=== PATIENT | female | born 1995 | race Caucasian/White ===

== ENCOUNTER 2017-11-28 17:41 | Emergency (ER) | payer OTHER ==
[2017-11-28 17:48] VITALS: BP 147/79; PULSE 109; RESP 20; TEMP 98.5
[2017-11-28] MEDS ORDERED: BUPIVACAINE (PF) 0.5% 30 ML VIAL SQ STA (18:17)
--- NOTE | 2017-11-28 18:21 | ED ---
ENT HPI - General Chief complaint: Dental/Oral Stated complaint: Tooth pain Time Seen by Provider: 11/28/17 18:14 Source: patient, RN notes reviewed, old records reviewed Mode of arrival: ambulatory Limitations: no limitations - History of Present Illness Initial comments: His is a 22-year-old female presents emergency room today chief complaint of left lower dental pain. Patient reports that she broke her tooth today while eating turkey. She reports that she schedule have the tooth removed on Friday. She states that she was started on amoxicillin by the dentist, and has enough of the antibiotics to continue until she has the procedure. She reports that he pain became acutely worse after it broke. Patient denies any fever or chills, chest pain, shortness of breath. Patient denies any drainage within her mouth. Denies any foul taste. She denies any trismus. - Related Data Previous Rx's Medication Instructions Recorded HYDROcodone/APAP 5-325MG [Mckinney 1 tab PO Q6HR PRN #12 tab 11/28/17 5-325] Ibuprofen 800 mg PO TID #20 tablet 11/28/17 Allergies Allergy/AdvReac Type Severity Reaction Status Date / Time No Known Allergies Allergy Verified 11/28/17 17:47 Review of Systems ROS Statement: Those systems with pertinent positive or pertinent negative responses have been documented in the HPI. ROS Other: All systems not noted in ROS Statement are negative. Past Medical History Past Medical History: No Reported History History of Any Multi-Drug Resistant Organisms: None Reported Past Surgical History: No Surgical Hx Reported Past Psychological History: No Psychological Hx Reported Smoking Status: Never smoker Past Alcohol Use History: None Reported Past Drug Use History: Marijuana General Exam - General Exam Comments Initial Comments: 22-year-old female. No acute distress. Limitations: no limitations General appearance: alert, in no apparent distress Head exam: Present: atraumatic, normocephalic, normal inspection Eye exam: Present: normal appearance, PERRL, EOMI. Absent: scleral icterus, conjunctival injection, periorbital swelling ENT exam: Present: normal exam, mucous membranes moist. Absent: normal oropharynx (Patient has fractured tooth #19. No evidence of dental abscess.) Neck exam: Present: normal inspection. Absent: tenderness, meningismus, lymphadenopathy Respiratory exam: Present: normal lung sounds bilaterally. Absent: respiratory distress, wheezes, rales, rhonchi, stridor Cardiovascular Exam: Present: regular rate, normal rhythm, normal heart sounds. Absent: systolic murmur, diastolic murmur, rubs, gallop, clicks GI/Abdominal exam: Absent: distended, tenderness, guarding, rebound, rigid Extremities exam: Present: normal inspection, full ROM, normal capillary refill. Absent: tenderness, pedal edema, joint swelling, calf tenderness Back exam: Present: normal inspection Neurological exam: Present: alert, oriented X3, CN II-XII intact Psychiatric exam: Present: normal affect, normal mood Skin exam: Present: warm, dry, intact, normal color. Absent: rash Course Vital Signs 11/28/17 17:46 Temperature 98.5 F Pulse Rate 109 H Respiratory 20 Rate Blood Pressure 147/79 O2 Sat by Pulse 98 Oximetry Procedures - Nerve Block Time Out Performed: Yes Local Anesthetic Used: Marcaine 0.5% Amount of anesthesia used: 4 Side: left Intraoral Nerve Block: inferior alveolar Procedure Successful: Yes Complications: none Patient Tolerated Procedure: well, no complications Medical Decision Making - Medical Decision Making This is a 22-year-old female presents emergency room today chief complaint of fractured tooth #19. It occurred after she was eating turkey. She is currently on amoxicillin, she is supposed to have this tooth pulled on Friday. Patient received a dental block in the emergency department. Patient is currently on amoxicillin case discussed, and she has enough until her procedure on Friday. Patient reports that she feels much better after receiving the inferior alveolar block. Patient be discharged at this time with reports of pain medication. Discussed following up with her dentist have the tooth removed on Friday. Patient agrees treatment plan will comply. Return parameters were discussed. Disposition Clinical Impression: Broken tooth Disposition: HOME SELF-CARE Condition: Good Instructions: Toothache (ED) Additional Instructions: Patient denies a follow-up with dentist on Friday. Return to the emergency department if any alarming signs or symptoms occur. Prescriptions: HYDROcodone/APAP 5-325MG [Mckinney 5-325] 1 tab PO Q6HR PRN #12 tab PRN Reason: Pain Ibuprofen 800 mg PO TID #20 tablet Referrals: None,Stated [Primary Care Provider] - 1-2 days Alem Otoole MD [STAFF PHYSICIAN] - 1-2 days Time of Disposition: 18:39
== END 2017-11-28 18:46 | disposition home or self-care (01) ==
LOC: EC 17:41
DX: S02.5XXA Fracture of tooth (traumatic), initial encounter for closed fracture (principal); X58.XXXA Exposure to other specified factors, initial encounter
CPT/HCPCS: 64400; 99283